=== PATIENT | male | born 1980 | race African-American/Black ===

== ENCOUNTER 2017-02-18 08:40 | Emergency (ER) | payer OTHER ==
[~2017-02-18] VITALS: Ht 182.9 cm; Wt 108.9 kg
[2017-02-18 08:41] VITALS: BP 168/119
[2017-02-18] MEDS ORDERED: IBUPROFEN 600600 M1 PO (09:22)
== END 2017-02-18 09:32 | disposition home or self-care (01) ==
LOC: ER 08:40
DX: K40.90 Unilateral inguinal hernia, without obstruction or gangrene, not specified as recurrent (principal); I10 Essential (primary) hypertension

== ENCOUNTER 2017-11-18 10:07 | Emergency (ER) | payer OTHER ==
[~2017-11-18] VITALS: Ht 185.4 cm; Wt 97.5 kg
[~2017-11-18 10:07] MED LIST: IBUPROFEN 600600 M1 PO
[2017-11-18] MEDS ORDERED: CYCLOBENZAPRINE5 MG PO (10:53)
[2017-11-18] MEDS ORDERED: MOBIC7.5 MG PO (10:56)
[2018-02-11] MEDS ORDERED: HYDROCHLOROTHIA25 M2 PO (12:53)
[2018-02-11] MEDS ORDERED: LIDOCAINE1 EACH TRANSDERM (13:53)
[2018-02-11] MEDS ORDERED: NAPROSYN500 MG PO (13:53)
== END 2017-11-18 11:02 | disposition home or self-care (01) ==
LOC: ER 10:07
DX: S09.90XA Unspecified injury of head, initial encounter (principal); M54.5 Low back pain; M54.6 Pain in thoracic spine; I10 Essential (primary) hypertension; V89.2XXA Person injured in unspecified motor-vehicle accident, traffic, initial encounter; Y93.89 Activity, other specified; Y92.89 Other specified places as the place of occurrence of the external cause; Y99.8 Other external cause status